=== PATIENT | male | born 1995 | race Caucasian/White ===

== ENCOUNTER → 2017-07-27 | Outpatient (CLI) | payer BC | LOC: COL.PUL 11:11 | DX: J45.21 Mild intermittent asthma with (acute) exacerbation (principal) ==

== ENCOUNTER 2018-09-14 13:25 | Emergency (ER) | payer BC ==
[~2018-09-14] VITALS: Ht 160 cm; Wt 68.2 kg
[2018-09-14 13:31] VITALS: TEMP 98.7
[2018-09-14 15:40] VITALS: BP 130/89; PULSE 81
== END 2018-09-14 15:39 | disposition home or self-care (01) ==
LOC: COL.ER 13:25
DX: S09.90XA Unspecified injury of head, initial encounter (principal); V43.52XA Car driver injured in collision with other type car in traffic accident, initial encounter